=== PATIENT | female | born 1940 | race African-American/Black ===

== ENCOUNTER 2019-04-03 21:31 | Emergency (ER) | payer MEDICARE ==
--- NOTE | 2019-04-03 22:08 | ER Document Report ---
ED Medical Screen (RME) - General Chief Complaint: Arm Pain Stated Complaint: LEFT ARM PAIN/FALL Time Seen by Provider: 04/03/19 22:06 Primary Care Provider: CIRA BARBA MD [Primary Care Provider] - Follow up as needed Notes: 78-year-old female presents with left arm pain that started this afternoon. Patient denies any injuries. Patient states it starts at her shoulder and goes down her arm. Patient denies any chest pain or shortness of breath. Portfolio Analyst strength is equal bilaterally. Upper extremity strength is equal bilaterally. I have greeted and performed a rapid initial assessment of this patient. A comprehensive ED assessment and evaluation of the patient, analysis of test results and completion of the medical decision making process with be conducted by additional ED providers. TRAVEL OUTSIDE OF THE [place] IN LAST 30 DAYS: No - Related Data Allergies/Adverse Reactions: No Known Allergies Allergy (Verified 12/20/12 18:00) Past Medical History - Past Medical History Cardiac Medical History: Reports: Hx Hypertension Denies: Hx Heart Attack Pulmonary Medical History: Denies: Hx Asthma, Hx Tuberculosis Neurological Medical History: Denies: Hx Cerebrovascular Accident, Hx Seizures GI Medical History: Denies: Hx Hepatitis, Hx Hiatal Hernia, Hx Ulcer Musculoskeltal Medical History: Reports Hx Arthritis Infectious Medical History: Denies: Hx Hepatitis Past Surgical History: Reports: Hx Section, Hx Tubal Ligation. Denies: Hx Mastectomy, Hx Open Heart Surgery, Hx Pacemaker - Immunizations Hx Diphtheria, Pertussis, Tetanus Vaccination: No - unknown Physical Exam - Vital signs Vitals: Temp Pulse Resp BP Pulse Ox 98.9 F 92 20 179/93 H 92 04/03/19 21:51 04/03/19 21:51 04/03/19 21:51 04/03/19 21:51 04/03/19 21:51 Course - Vital Signs Vital signs: Temp Pulse Resp BP Pulse Ox 98.9 F 92 20 179/93 H 92 04/03/19 21:51 04/03/19 21:51 04/03/19 21:51 04/03/19 21:51 04/03/19 21:51 Doctor's Discharge - Discharge Referrals: CIRA BARBA MD [Primary Care Provider] - Follow up as needed
--- NOTE | 2019-04-03 23:04 | RADIOLOGY REPORT (SQ) ---
EXAM DESCRIPTION: Left elbow RadLex: XR ELBOW 1-2 VIEWS Views: 2 CLINICAL HISTORY: 78 years Female, pain COMPARISON: None. FINDINGS: No significant joint effusion, although lateral view is slightly obliqued. There is mild reactive osteophyte formation at the triceps insertion. No displaced fractures. No hyperdense foreign bodies. IMPRESSION: 1. No displaced fractures. 2. Mild degenerative changes 3. If symptoms persist, consider follow-up 3 view radiographs.
--- NOTE | 2019-04-03 23:06 | RADIOLOGY REPORT (SQ) ---
EXAM DESCRIPTION: Left wrist RadLex: XR WRIST 1-2 VIEWS Views: 2 CLINICAL HISTORY: 78 years Female, pain COMPARISON: None. 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 Carpal alignment is otherwise grossly unremarkable. No acute displaced fractures are identified. IMPRESSION: 1. No acute findings. 2. If symptoms persist, consider follow-up 4 view wrist series.
--- NOTE | 2019-04-03 23:08 | RADIOLOGY REPORT (SQ) ---
EXAM DESCRIPTION: XR SHOULDER 2 OR MORE VIEWS COMPLETED DATE/TME: 04/03/2019 22:06 CLINICAL HISTORY: 78 years Female, pain COMPARISON: None. Findings: Moderate osteoarthritis. Low lung volume. Atherosclerosis. Bones, joints, and soft tissues of the LEFT XR SHOULDER 2 OR MORE VIEWS appear otherwise unremarkable. IMPRESSION: No acute findings.
[2019-04-04] MEDS ORDERED: ACETAMINOPHEN 325 MG TABLET PO ONE (00:24)
--- NOTE | 2019-04-04 00:33 | ER Document Report ---
HPI - HPI Time Seen by Provider: 04/03/19 22:06 Pain Level: 4 Notes: Patient is an 78-year-old female who presents complaining of left upper arm pain that radiates into her lower arm and her shoulder area that began earlier in the day without an obvious injury. Patient states that the pain is there with movement and not at rest. Denies drug allergies. She is otherwise feeling well. She is able to eat and drink without difficulty. She is urinating normally. Denies any headache, fever, head injury, neck pain, changes in vision/speech/mentation/hearing, URI, sore throat, chest pain, palpitations, syncope, cough, shortness of breath, wheeze, dyspnea, abdominal pain, nausea/vomiting/diarrhea, urinary retention, dysuria, hematuria, loss of control of bowel or bladder, numbness/tingling, saddle anesthesia, muscle paralysis, or rash. - ROS Systems Reviewed and Negative: Yes All other systems reviewed and negative - REPRODUCTIVE Reproductive: DENIES: : Past Medical History - Social History Smoking Status: Never Smoker Frequency of alcohol use: None Drug Abuse: None Family History: Reviewed & Not Pertinent Patient has suicidal ideation: No Patient has homicidal ideation: No - Past Medical History Cardiac Medical History: Reports: Hx Hypertension Denies: Hx Heart Attack Pulmonary Medical History: Denies: Hx Asthma, Hx Tuberculosis Neurological Medical History: Denies: Hx Cerebrovascular Accident, Hx Seizures GI Medical History: Denies: Hx Hepatitis, Hx Hiatal Hernia, Hx Ulcer Musculoskeletal Medical History: Reports Hx Arthritis Infectious Medical History: Denies: Hx Hepatitis Past Surgical History: Reports: Hx Section, Hx Tubal Ligation. Denies: Hx Mastectomy, Hx Open Heart Surgery, Hx Pacemaker - Immunizations Hx Diphtheria, Pertussis, Tetanus Vaccination: No - unknown Vertical Provider Document - CONSTITUTIONAL Agree With Documented VS: Yes Notes: PHYSICAL EXAMINATION: GENERAL: Well-appearing, well-nourished and in no acute distress. NECK: Normal range of motion, supple without lymphadenopathy. Non-tender. Spurling negative. No rigidity/meningismus. LUNGS: Breath sounds clear to auscultation bilaterally and equal. No wheezes rales or rhonchi. HEART: Regular rate and rhythm without murmurs, rubs, gallops. Musculoskeletal: LUE: FROM to passive/active at the shoulder, elbow, and wrist. Strength 4+/5 to flexion at the elbow vs the right. No erythema or warmth. No deformity or ecchymosis. + mild muscle bulge left biceps with reproducible tenderness at the origin with loss of tone vs good biceps tone to flexion of the right. No bony tenderness. N/v intact distal otherwise. Extremities: No cyanosis, clubbing, or edema b/l. Peripheral pulses 2+. Capillary refill less than 3 seconds. NEUROLOGICAL: Normal speech, normal gait. Normal sensory, motor exams PSYCH: Normal mood, normal affect. SKIN: Warm, Dry, normal turgor, no rashes or lesions noted. - INFECTION CONTROL TRAVEL OUTSIDE OF THE [place] IN LAST 30 DAYS: No Course - Re-evaluation Re-evalutation: 04/04/19 00:29 Patient is an afebrile, well-hydrated, 78-year-old female who presents to the ED with left arm pain which I suspect to be a proximal biceps tendon rupture. Vitals are acceptable without any significant tachycardia, tachypnea, or hypoxia. PE is otherwise unremarkable for any neurovascular compromise, obvious fracture/dislocation, septic joint. X-rays unremarkable for any acute pathology. Tylenol/sling provided. Patient is nontoxic-appearing. No other labs or imaging warranted at this time based on H&P. Conservative measures otherwise for symptoms. Recheck with your PCM in 3-5 days. Schedule consult with orthopedics although I suspect that her overall treatment will consist of therapy and not surgery based on her age alone. Return to the ED with any worsening/concerning symptoms otherwise as reviewed in discharge. Patient/daughter in agreement. - Vital Signs Vital signs: Temp Pulse Resp BP Pulse Ox 98.9 F 92 20 179/93 H 92 04/03/19 22:03 04/03/19 22:03 04/03/19 22:03 04/03/19 22:03 04/03/19 22:03 Discharge - Discharge Clinical Impression: Left arm pain Condition: Stable Disposition: HOME, SELF-CARE Additional Instructions: As reviewed, you have left arm pain which I suspect to be a possible biceps tendon rupture. I suspect that your overall treatment will consist of therapy and not surgery, but I would like you to speak with orthopedics to discuss your options. Rest, Ice, Compression, Elevation Use sling as directed Tylenol/ibuprofen as needed F/u with your PCP in 3-5 days for a recheck Call orthopedics tomorrow to schedule an appointment for further evaluation and management Return to the ED with any worsening symptoms and/or development of fever, headache, chest pain, palpitations, syncope, shortness of breath, trouble breathing, abdominal pain, n/v/d, muscle weakness/paralysis, numbness/tingling, swelling, redness, or other worsening symptoms that are concerning to you. Forms: Elevated Blood Pressure Referrals: CIRA BARBA MD [Primary Care Provider] - Follow up as needed DENVER WRIGHT JR, DO [ACTIVE PROVISIONAL STAFF] - Follow up in 3-5 days
[2019-04-04 01:09] VITALS: BP 165/72
== END 2019-04-04 01:09 | disposition home or self-care (01) ==
LOC: ER 21:31
DX: M79.622 Pain in left upper arm (principal); I10 Essential (primary) hypertension
CPT/HCPCS: 99283; 73070; 73030; 73100; A9270